=== PATIENT | female | born 1950 | race Caucasian/White ===

== ENCOUNTER 2020-10-28 19:19 | Inpatient (IN) ==
[2020-10-28] MEDS ORDERED: KETOROLAC 15 MG/ML VIAL IV ONE (19:54)
[2020-10-28] MEDS ORDERED: LACTATED RINGERS 1,000 ML IV ONE (19:54)
[2020-10-28] MEDS ORDERED: morphine 4 MG/ML VIAL IV ONE ×2 (19:54→21:43)
[2020-10-28] MEDS ORDERED: ONDANSETRON 4 MG/2 ML VIAL IV ONE ×2 (19:54→23:59)
[2020-10-28 20:38] LABS: Basophils # (Auto) 0.06 K/mcL (0.00-0.20); Basophils % (Auto) 0.6 % (0.0-2.0); Eosinophils # (Auto) 0.12 K/mcL (0.00-0.70); Eosinophils % (Auto) 1.2 % (0.0-7.0); Hematocrit 45.3 % (36.0-48.0); Hemoglobin 14.7 g/dL (12.0-15.0); Lymphocytes % (Auto) 24.2 % (15.0-49.0); Mean Cell Volume 96.6 fL (80.0-100.0); Mean Corpuscular HGB Conc 32.5 g/dL (31.0-36.0); Mean Platelet Volume 9.1 fL (7.4-10.4); Monocytes # (Auto) 0.72 K/mcL (0.10-0.90); Monocytes % (Auto) 7.3 % (1.0-12.0); Neutrophils % (Auto) 66.7 % (38.0-78.0); Platelet Count 370 K/mcL (140-440); RBC 4.69 M/mcL (4.00-5.20); Red Cell Distribution Width 15.5 % (11.5-14.5); WBC 9.9 K/mcL (4.5-11.0)
--- NOTE | 2020-10-28 20:49 | Emergency Department Note ---
Abdominal Pain HPI General Chief Complaint: Abdominal Pain Stated Complaint: left sided abdominal pain Time Seen by Provider: 10/28/20 19:33 Source: patient Mode of arrival: ambulatory Limitations: no limitations History of Present Illness HPI Narrative: Narrative: 70-year-old female history hypertension, GERD, distant kidney stone presented to the ED with acute left flank pain that started this evening. Left flank pain radiating around to her left groin region. Associated with nausea and the feeling of urinary hesitancy, no dysuria or hematuria. No fever no chills, no vomiting, no stool changes. No cardiorespiratory complaints or other symptoms. She does not remember if this feels like her previous kidney stone because it was a very long time ago. No other complaints Related Data Home Medications Medication Instructions Recorded Confirmed budesonide 3 mg 3 mg PO QDAY each 11/21/14 05/23/15 capsule,delayed,extended release Previous Rx's Medication Instructions Recorded albuterol sulfate 2 puff IH Q4-6HP PRN #1 hfa.aer.ad 03/12/15 clindamycin HCl 450 mg PO TID #126 cap 03/12/15 oxycodone 20 mg tablet 20 mg PO Q4H PRN #120 tab 04/18/15 oxycodone 10 mg tablet,crush 10 mg PO BID #60 tab 04/25/15 resistant,extended release 12 hr methocarbamol 750 mg tablet 750 mg PO Q6H 30 Days #120 tab 05/23/15 spironolactone 25 mg tablet 25 mg PO BID #60 tab 05/23/15 Allergies Allergy/AdvReac Type Severity Reaction Status Date / Time alprazolam [From Xanax] Allergy Unknown Unknown Verified 05/23/15 09:07 codeine Allergy Unknown Vomiting Verified 10/29/20 02:30 Doxepin Allergy Unknown Unknown Verified 05/23/15 09:07 Penicillins Allergy Unknown Agitated Verified 10/29/20 02:32 prednisone Allergy Unknown Shakiness Verified 10/29/20 02:30 Dougpgx-Zhk-Own Reductase Allergy Unknown Unknown Verified 05/23/15 09:07 Inhibitor Sulfa (Sulfonamide Allergy Unknown Hives Verified 10/29/20 02:32 Antibiotics) sumatriptan [From Imitrex] Allergy Unknown Unconscious Verified 10/29/20 02:34 tramadol Allergy Unknown Vomiting Uncoded 10/29/20 02:33 vicodin Allergy Unknown Vomiting Uncoded 10/29/20 02:33 Review of Systems ROS ROS Narrative: Narrative: At least 10 systems reviewed and otherwise acutely negative except as in the HPI PFSH Narrative Patient History Narrative: Narrative: Medical/Surgical/Family History All Active Problems (Updated 10/29/20 @ 04:44 by Afshin Cote DO) Trigger point with back pain (Acute) Maxillary sinusitis (Acute) Bronchitis (Acute) Calculus of left ureter (Acute) Intractable abdominal pain (Acute) Adrenal nodule (Acute) Swelling of lower extremity (Chronic) Abdominal bloating (Acute) Lymphocytic-plasmacytic colitis (Acute) Chest swelling (Chronic) Spasm of muscle (Chronic) Rhinorrhea (Chronic) Personal history of allergy to other specified medicinal agents (Chronic) Obesity (Chronic) Disease of nasal cavity and sinuses (Chronic) Melanoma of skin (Chronic) Hypertension, essential, benign (Chronic) Gastroesophageal reflux (Chronic) Empty sella syndrome (Chronic) Chest pressure (Chronic) Tobacco abuse (Chronic) Diarrhea (Acute) Chronic pain (Chronic) Chest pain (Chronic) Anxiety disorder (Chronic) Tubular adenoma (Chronic 07/04/12) Medical History Abdominal bloating Try Gas-Ex Adrenal nodule in 2013, it had been stable 1.5 yrs, so very likely a benign adrenal adenoma. CT will help define. Can check for pancreatic atrophy also. Anxiety disorder Bronchitis Chest pain Chest pressure Chest swelling Chronic pain Diarrhea Try Imodium. Try Budesonide Disease of nasal cavity and sinuses Sphenoid CSF leak Empty sella syndrome Gastroesophageal reflux Hypertension, essential, benign Lymphocytic-plasmacytic colitis Discussed that typically this is self-limited, though can take years to resolve. It is not dangerous in and of itself, and if all the treatments are making her ill, we can certainly focus just on symptom control, with Imodium or Lomotil, and with Gas-Ex, etc. Maxillary sinusitis Melanoma of skin Obesity Personal history of allergy to other specified medicinal agents Rhinorrhea Spasm of muscle movemenet disorder with instability on neck,spasm in right neck and trapezius,and shaking tremor and pain in right arm Swelling of lower extremity Tobacco abuse Trigger point with back pain Tubular adenoma (07/04/12) 09/25/2014 - Dr. Rahman Surgical History History of abdominal surgery abdominoplasty/tummy florick 1987 History of appendectomy 1986 History of biopsy (05/25/12) SMALL BOWEL-DUODENAL BULB BIOPSY History of cervical biopsy (11/16/12) Cuff Biopsy (A) /Tissue (B): (A) Focal Koilocytosis, (B) Squamous mucosa with patchy keratosis and mild hyperplasia, no dysplasia or malignancy identified History of colonoscopy 09/25/2014 - Dr. Rahman - Tubular Adenoma History of cystoscopy History of dilation and curettage X'S 2 History of esophagogastroduodenoscopy 09/25/2014 - Dr. Rahman History of hysterectomy 1983 with bladder suspension History of laparoscopy 1983 for endometriosis History of mandibular surgery 1990 mandibular History of oophorectomy 1986 right History of rhinoplasty sphenoid leak repair x 6,right sphenoid polyp removal 2004 sinus surgery to repair csf leak in 2004 with 5 more subsequent repairs last one in 2007 History of salpingoophorectomy History of TMJ disorder 1984,1987 History of tubal ligation 1977 Family History Unknown Alcohol abuse Diabetes mellitus Osteoarthritis Cardiac disease Family history of malignant neoplasm unspecified Social History Smoking Status: Current every day smoker Alcohol Intake Frequency: former alcohol drinker Exam Narrative Narrative: Narrative: Constitutional: normally developed, appears uncomfortable, cannot sit still. Head: Normocephalic, atraumatic, Eyes: No Icterus, ENT: Moist mucus membranes, Neck: Supple, Cardiac: Normal heart sounds, palpable radial and dorsalis pedis pulses, trace symmetric peripheral edema Pulmonary: Normal respiratory effort. Breath sounds clear, no wheeze, rhonchi, rales, Gastrointestinal: Abdomen soft, non-distended, somewhat tender in her left lower quadrant, quite tender with left CVA palpation Musculoskeletal: No gross deformities, well perfused Skin: warm, dry Neuro: Alert and oriented. General Limitations: no limitations Course Vital Signs Vital signs: Vital Signs Temperature 36.9 C 10/28/20 19:19 Pulse Rate 118 H 10/28/20 19:19 Respiratory Rate 20 10/28/20 19:19 Blood Pressure 178/150 10/28/20 19:19 Pulse Oximetry (%) 95 10/28/20 19:19 Temperature 36.7 C 10/29/20 02:27 Pulse Rate 91 H 10/29/20 02:27 Respiratory Rate 20 10/29/20 02:27 Blood Pressure 148/84 10/29/20 02:27 Pulse Oximetry (%) 91 10/29/20 02:27 MDM MDM Narrative Medical decision making narrative: Narrative: Patient with left flank pain, vital stable appears uncomfortable does have CVA tenderness. Work-up was initiated as treated symptomatically, will obtain labs urine and CT CBC unremarkable no leukocytosis Electrolytes unremarkable normal renal function Urine dip negative for infection, negative for glucose, negative for ketones, large blood positive CT shows moderate left hydronephrosis and hydroureter with a 4 mm stone in the proximal left ureter Reevaluation presentation consistent with a ureteral stone with no evidence of acute kidney injury nor infection, However patient has required multiple rounds of analgesia including Toradol and morphine and Dilaudid, multiple antiemetics, is given Flomax however she is still having recurrent flank pain worsens when she attempts any sort of movement or ambulation and nausea. Will require admission for symptom control. I did discuss with our hospitalist here, considering there is no indication for emergent urological intervention, and stone is of appropriate size to suggest passing with conservative management he is agreeable and comfortable admitting her here for symptom control, despite not have urology on-call at this time. and if at any point she requires further urologic care she can be transferred at that time. Patient and family are very agreeable to this plan. Admitted to observation with stable vitals Lab Data Result diagrams: 10/28/20 20:12 10/28/20 20:12 Labs: Lab Results 10/28/20 10/28/20 Range/Units 20:12 20:12 WBC 9.9 (4.5-11.0) K/mcL RBC 4.69 (4.00-5.20) M/mcL Hgb 14.7 (12.0-15.0) g/dL Hct 45.3 (36.0-48.0) % MCV 96.6 (80.0-100.0) fL MCH 31.3 (26.0-34.0) pg MCHC 32.5 (31.0-36.0) g/dL RDW 15.5 H (11.5-14.5) % Plt Count 370 (140-440) K/mcL MPV 9.1 (7.4-10.4) fL Neut % (Auto) 66.7 (38.0-78.0) % Lymph % (Auto) 24.2 (15.0-49.0) % [place] % (Auto) 7.3 (1.0-12.0) % Eos % (Auto) 1.2 (0.0-7.0) % Baso % (Auto) 0.6 (0.0-2.0) % Lymph # (Auto) 2.40 (1.50-4.80) K/mcL [place] # (Auto) 0.72 (0.10-0.90) K/mcL Eos # (Auto) 0.12 (0.00-0.70) K/mcL Baso # (Auto) 0.06 (0.00-0.20) K/mcL Absolute Neutrophils 6.62 (1.80-8.00) K/mcL Sodium 137 (133-145) mmol/L Potassium 4.1 (3.3-5.1) mmol/L Chloride 101 (96-108) mmol/L Carbon Dioxide 23 (22-30) mmol/L Anion Gap 13.0 (8.0-16.0) BUN 9 (8-23) mg/dL Creatinine 0.8 (0.6-1.1) mg/dL GFR Calculation 75 Glucose 152 H (70-105) mg/dL Calcium 9.1 (8.6-10.4) mg/dL Total Bilirubin 0.2 (0.1-1.0) mg/dL AST 36 H (<32) U/L ALT 38 (<40) U/L Alkaline Phosphatase 91 (39-117) U/L Total Protein 7.6 (5.9-8.4) gm/dL Albumin 3.9 (3.2-5.2) gm/dL Globulin 3.7 (2.2-3.7) gm/dL Albumin/Globulin Ratio 1.1 (1.0-2.3) Lipase 23 (7-60) U/L ED POC Tests ED POC Tests: MADAN - SARS Antigen Negative Discharge Plan Patient/Caregiver Discharge Instructions Pt seen by ASSEMBLYMAN OR WOMAN/PA only: No Clinical Impression: Calculus of left ureter, Intractable abdominal pain Patient Disposition: Xfer As Inpt ([facility]) Discharge Date/Time: 10/29/20 02:19
[2020-10-28 20:55] LABS: ALT/SGPT 38 U/L (<40); AST/SGOT 36 U/L (<32); Albumin 3.9 gm/dL (3.2-5.2); Albumin/Globulin Ratio 1.1 (1.0-2.3); Alkaline Phosphatase 91 U/L (39-117); Bilirubin,Total 0.2 mg/dL (0.1-1.0); Blood Urea Nitrogen 9 mg/dL (8-23); Calcium 9.1 mg/dL (8.6-10.4); Carbon Dioxide 23 mmol/L (22-30); Chloride 101 mmol/L (96-108); Globulin 3.7 gm/dL (2.2-3.7); Glomerular Filtration Rate 75; Glucose 152 mg/dL (70-105)
[2020-10-28] MEDS ORDERED: HYDROmorphone 0.5 MG/0.5 ML SYRINGE IV ONE (22:07)
[2020-10-28] MEDS ORDERED: TAMSULOSIN 0.4 MG CAPSULE PO ONE (23:56)
[2020-10-28] MEDS ORDERED: HYDROmorphone 1 MG/ML SYRINGE IV ONE (23:56)
[2020-10-29] MEDS ORDERED: ONDANSETRON 4 MG/2 ML VIAL IV PRN ×2 (01:36→09:29)
[2020-10-29] MEDS: HYDROmorphone 0.5 MG/0.5 ML SYRINGE IV PRN ×7 (02:12→22:10)
--- NOTE | 2020-10-29 06:12 | Cat Scan Report ---
INDICATION: L flank pain COMPARISON: None. TECHNIQUE: Axial images were obtained through the abdomen and pelvis. Sagittally and coronally reformatted images. FINDINGS: Examination was initially interpreted by [facility] Lung bases:There is reticular abnormality at both lung bases. There is mild tree-in-bud abnormality. No parenchymal consolidation or definite groundglass infiltrate. Findings are nonspecific. Is not typical for covid pneumonia but clinical correlation is necessary. There is no pleural fluid. Liver:Liver is heterogeneous and low density consistent with hepatic steatosis. Liver contour is smooth. There is no discrete mass identified on this noncontrast enhanced examination. Gallbladder, bilary:No calcified gallstones. No gallbladder wall thickening. No pericholecystic fluid. No dilated bile ducts Spleen:No splenomegaly Pancreas:No pancreatic mass. No peripancreatic abnormality Adrenal glands:Bilateral benign adrenal nodules. Right adrenal nodule measures 3.0 x 2.4 cm. Left adrenal nodule measures 16.6 x 17.1 cm. Both adrenal nodules contain fat Kidneys, ureters, bladder: Negative right kidney. No hydronephrosis. No detectable mass. There is a 2 mm nonobstructing left lower pole calculus. There is an obstructing 6 mm stone in the proximal left ureter at the L3-4 level. Is moderate hydronephrosis. No bladder calculi. Gastrointestinal:No significant diverticulosis or evidence for diverticulitis. No detectable colonic mass No mechanical small bowel obstruction. No small bowel dilatation. Appendix: The appendix is not visualized. No secondary findings of appendicitis Vascular:There is calcification of the abdominal aorta and common iliac arteries. No abdominal aortic aneurysm. There is mild calcification at the origin of the superior mesenteric artery. Lymphatic:No retroperitoneal adenopathy. No significant mesenteric adenopathy. Mesentery, peritoneum:No free intraperitoneal fluid. No intra-abdominal abscess. No pneumoperitoneum Reproductive:Uterus is not identified. No adnexal mass Musculoskeletal:No lumbar compression fractures. No lytic lesions. Negative sacrum. No insufficiency fracture. Pelvis is negative. No fracture. No lytic lesion. Patient has undergone previous right total hip arthroplasty No anterior abdominal wall or inguinal hernia. IMPRESSION: 1. Moderate left hydronephrosis. Obstructing 6 mm calculus in the proximal left ureter 2. 2 mm nonobstructing left lower pole renal stone 3. Bilateral fat-containing adrenal nodules 4. Reticular abnormality of both lung bases. No definite groundglass infiltrates. Correlation for symptoms of pneumonia recommended The exam was performed using radiation dose optimization techniques including, but not limited to, automated exposure control, adjustment of the mA and/or kV according to patient size and use of iterative reconstruction technique. Interpreted and Authenticated by: rGiffin Harman 10/29/20
[2020-10-29] MEDS ORDERED: PROMETHAZINE 25 MG/ML VIAL IV PRN (09:29)
[2020-10-29] MEDS ORDERED: ACETAMINOPHEN 325 MG TABLET PO PRN (09:29)
--- NOTE | 2020-10-29 09:33 | Internal Med History&Physical ---
HPI History of Present Illness Patient information: Note initiated : 10/29/20 at 9:33 am Service Date, if different from initiated Date: [] Patient: Chidi Muniz a 70 y/o F admitted on 10/29/20 for left sided abdominal pain. Chief Complaint: [left renal and ureteral stone] History of present illness: Ms. Muniz is a 70 year old F history of cervical dystonia, cancer of the sinuses, essential HTN, presenting with acute onset left lower quadrant abdominal pain as well as left middle to lower back pain for 2 days. She had similar symptoms associated with kidney stone about 3 years ago. She was in her usual state of health until yesterday when she had acute onset pain as described before. The pain was described as severe in severity, discomfort in nature, constant, and covering the region described before. She also have associated nausea and vomiting. There is no alleviating or exacerbating factors. Due to her symptoms, she presented to our ED for further evaluation and treatments. CT imaging shows the presence of 2 mm nonobstructing stone in the lower pole of the left kidney as well as a 6 mm stone in the left proximal ureter. There is also hydronephrosis of the left kidney noted. Constitutional Constitutional: Absent chills, excessive sweating, fatigue, fever(s) and weakness EENT Eyes: Absent blurry vision, change in vision, loss of vision and other visual disturbances Ears: Absent decreased hearing and tinnitus Nose, mouth and throat: Absent abnormal hearing, dry mouth, headache(s), nasal congestion and sore throat Cardiovascular Cardiovascular: Absent chest pain, chest pain at rest, edema, irregular heart rhythm and palpatations Respiratory Respiratory: Absent cough, dyspnea and wheezing Gastrointestinal Gastrointestinal: Present abdominal pain, nausea and vomiting; Absent constipation and diarrhea Musculoskeletal Musculoskeletal: Present back pain; Absent deformity, limited range of motion, muscle cramps, muscle weakness and numbness Integumentary Integumentary: Absent lesions, rash and wounds Neurological Neurological: Absent focal weakness, headache(s) and numbness Psychiatric Psychiatric: Absent anxiety, depression and hallucinations PFSH PFSH All Active Problems (Updated 10/29/20 @ 09:38 by Janes Suero MD) Left renal stone (Acute) Ureteral stone with hydronephrosis (Acute) Trigger point with back pain (Acute) Maxillary sinusitis (Acute) Bronchitis (Acute) Calculus of left ureter (Acute) Intractable abdominal pain (Acute) Adrenal nodule (Acute) Swelling of lower extremity (Chronic) Abdominal bloating (Acute) Lymphocytic-plasmacytic colitis (Acute) Chest swelling (Chronic) Spasm of muscle (Chronic) Rhinorrhea (Chronic) Personal history of allergy to other specified medicinal agents (Chronic) Obesity (Chronic) Disease of nasal cavity and sinuses (Chronic) Melanoma of skin (Chronic) Hypertension, essential, benign (Chronic) Gastroesophageal reflux (Chronic) Empty sella syndrome (Chronic) Chest pressure (Chronic) Tobacco abuse (Chronic) Diarrhea (Acute) Chronic pain (Chronic) Chest pain (Chronic) Anxiety disorder (Chronic) Tubular adenoma (Chronic 07/04/12) Medical History Abdominal bloating Try Gas-Ex Adrenal nodule in 2013, it had been stable 1.5 yrs, so very likely a benign adrenal adenoma. CT will help define. Can check for pancreatic atrophy also. Anxiety disorder Bronchitis Chest pain Chest pressure Chest swelling Chronic pain Diarrhea Try Imodium. Try Budesonide Disease of nasal cavity and sinuses Sphenoid CSF leak Empty sella syndrome Gastroesophageal reflux Hypertension, essential, benign Lymphocytic-plasmacytic colitis Discussed that typically this is self-limited, though can take years to resolve. It is not dangerous in and of itself, and if all the treatments are making her ill, we can certainly focus just on symptom control, with Imodium or Lomotil, and with Gas-Ex, etc. Maxillary sinusitis Melanoma of skin Obesity Personal history of allergy to other specified medicinal agents Rhinorrhea Spasm of muscle movemenet disorder with instability on neck,spasm in right neck and trapezius,and shaking tremor and pain in right arm Swelling of lower extremity Tobacco abuse Trigger point with back pain Tubular adenoma (07/04/12) 09/25/2014 - Dr. Rahman Surgical History History of abdominal surgery abdominoplasty/tummy erin 1987 History of appendectomy 1986 History of biopsy (05/25/12) SMALL BOWEL-DUODENAL BULB BIOPSY History of cervical biopsy (11/16/12) Cuff Biopsy (A) /Tissue (B): (A) Focal Koilocytosis, (B) Squamous mucosa with patchy keratosis and mild hyperplasia, no dysplasia or malignancy identified History of colonoscopy 09/25/2014 - Dr. Rahman - Tubular Adenoma History of cystoscopy History of dilation and curettage X'S 2 History of esophagogastroduodenoscopy 09/25/2014 - Dr. Rahman History of hysterectomy 1983 with bladder suspension History of laparoscopy 1983 for endometriosis History of mandibular surgery 1990 mandibular History of oophorectomy 1986 right History of rhinoplasty sphenoid leak repair x 6,right sphenoid polyp removal 2004 sinus surgery to repair csf leak in 2004 with 5 more subsequent repairs last one in 2007 History of salpingoophorectomy History of TMJ disorder 1984,1988 History of tubal ligation 1978 Family History Unknown Alcohol abuse Diabetes mellitus Osteoarthritis Cardiac disease Family history of malignant neoplasm unspecified Social History marital status: alcohol intake frequency: former alcohol drinker MEDS/ALLERGIES Home Medications and Allergies Home Medications Medication Instructions Recorded Confirmed Type budesonide 3 mg 3 mg PO QDAY each 11/21/14 05/23/15 History capsule,delayed,extended release albuterol sulfate 2 puff IH Q4-6HP PRN #1 hfa.aer.ad 03/12/15 05/23/15 Rx clindamycin HCl 450 mg PO TID #126 cap 03/12/15 05/23/15 Rx oxycodone 20 mg tablet 20 mg PO Q4H PRN #120 tab 04/18/15 05/23/15 Rx oxycodone 10 mg tablet,crush 10 mg PO BID #60 tab 04/25/15 05/23/15 Rx resistant,extended release 12 hr methocarbamol 750 mg tablet 750 mg PO Q6H 30 Days #120 tab 05/23/15 05/23/15 Rx spironolactone 25 mg tablet 25 mg PO BID #60 tab 05/23/15 05/23/15 Rx Allergies Allergy/AdvReac Type Severity Reaction Status Date / Time alprazolam [From Xanax] Allergy Unknown Unknown Verified 05/23/15 09:07 codeine Allergy Unknown Vomiting Verified 10/29/20 02:30 Doxepin Allergy Unknown Unknown Verified 05/23/15 09:07 Penicillins Allergy Unknown Agitated Verified 10/29/20 02:32 prednisone Allergy Unknown Shakiness Verified 10/29/20 02:30 Opyzbqe-Zyb-Lnl Reductase Allergy Unknown Unknown Verified 05/23/15 09:07 Inhibitor Sulfa (Sulfonamide Allergy Unknown Hives Verified 10/29/20 02:32 Antibiotics) sumatriptan [From Imitrex] Allergy Unknown Unconscious Verified 10/29/20 02:34 tramadol Allergy Unknown Vomiting Uncoded 10/29/20 02:33 vicodin Allergy Unknown Vomiting Uncoded 10/29/20 02:33 EXAM Constitutional Vitals: Temp Pulse Resp BP Pulse Ox 36.6 C 116 H 22 163/92 95 10/29/20 08:00 10/29/20 08:00 10/29/20 08:00 10/29/20 08:00 10/29/20 08:00 General appearance: cooperative and mild distress Head Head exam: Present atraumatic and normocephalic Eye Eye exam: Present EOMI and PERRL ENT ENT exam: Present mucous membranes moist, normal exam and normal external ear exam Neck Neck exam: Present normal inspection; Absent lymphadenopathy, tenderness and thyromegaly Respiratory Respiratory exam: Absent accessory muscle use, respiratory distress and wheezes Cardiovascular Cardiovascular exam: Present normal rate and rhythm; Absent JVD GI/Abdominal GI/Abdominal exam: Present normal bowel sounds and soft; Absent organomegaly and tenderness Additional comments: obese abdomen Extremities Exam Extremities exam: Present full ROM, normal capillary refill and normal inspection; Absent tenderness Back Exam Back exam: Absent CVA tenderness (L) Neurological Exam Neurological exam: Present alert, CN II-XII intact and oriented X3; Absent motor sensory deficit Psychiatric Psychiatric exam: Present normal affect and normal mood; Absent anxious and depressed Skin Skin exam: Present dry and intact DATA Data Completed and Pending Labs: Labs from last 24 hours 10/28/20 10/28/20 20:12 20:12 WBC 9.9 RBC 4.69 Hgb 14.7 Hct 45.3 MCV 96.6 MCH 31.3 MCHC 32.5 RDW 15.5 H Plt Count 370 MPV 9.1 Neut % (Auto) 66.7 Lymph % (Auto) 24.2 [place] % (Auto) 7.3 Eos % (Auto) 1.2 Baso % (Auto) 0.6 Lymph # (Auto) 2.40 [place] # (Auto) 0.72 Eos # (Auto) 0.12 Baso # (Auto) 0.06 Absolute Neutrophils 6.62 Sodium 137 Potassium 4.1 Chloride 101 Carbon Dioxide 23 Anion Gap 13.0 BUN 9 Creatinine 0.8 GFR Calculation 75 Glucose 152 H Calcium 9.1 Total Bilirubin 0.2 AST 36 H ALT 38 Alkaline Phosphatase 91 Total Protein 7.6 Albumin 3.9 Globulin 3.7 Albumin/Globulin Ratio 1.1 Lipase 23 A/P Assessment and plan (1) Obesity: Status: Chronic (2) Ureteral stone with hydronephrosis: Status: Acute (3) Left renal stone: Status: Acute (4) Hypertension, essential, benign: Status: Chronic Narrative A/P Narrative: Assessment and Plans: 1. Left kidney stone and left proximal ureteral stone with associated hydronephrosis: Observation med surg IV fluid: NS@100cc/hr Flomax Symptoms control as following: Dilaudid IV PRN severe pain Percocet PO PRN moderate pain Toradol IV PRN mild pain Zofran IV PRN nausea vomiting Phenergan IV PRN nausea vomiting Compazine IV PRN nausea vomiting Consider consulting urology if no symptoms improvement for potential lithotripsy 2. Essential HTN: Currently normotensive Continue home dose of oral antihypertensives 3. Morbid obesity: [employer] patient on life style modifications including healthy diet and regular exercise in order to lose weight GI ppx: not currently indicated DVT ppx: SCDs Code status: Full Prognosis: Stable Disposition: Observation med surg Time Spent With Patient Time: Total time spent is greater than 50% in coordination of care (as documented) at patient's floor/unit and/or counseling patient: QUALITY Stroke Symptom Onset Unknown: No VTE Deep Vein Thrombosis/Pulmonary Embolism Present on Admission: No
[2020-10-29] MEDS: 0.9 % SODIUM CHLORIDE 1,000 ML IV SCH ×2 (10:26→20:47)
[2020-10-29] MEDS: KETOROLAC 15 MG/ML VIAL IV PRN ×2 (10:45→17:31)
[2020-10-29] MEDS: 0.9 % SODIUM CHLORIDE 10 ML SYRINGE IV SCH ×2 (14:30→22:13)
[2020-10-29] MEDS: PROCHLORPERAZINE 10 MG/2 ML VIAL IV PRN (15:35)
[2020-10-29] MEDS: oxyCODONE/APAP 5/325MG TABLET PO PRN (18:52)
[2020-10-29] MEDS: TAMSULOSIN 0.4 MG CAPSULE PO SCH (20:47)
[2020-10-29] MEDS ORDERED: traZODone HCL 50 MG TABLET PO PRN (21:00)
[2020-10-29] MEDS: DOCUSATE SODIUM 100 MG CAPSULE PO SCH (22:17)
[2020-10-29] MEDS: SENNOSIDES 1 TABLET PO SCH (22:17)
[2020-10-30] MEDS: oxyCODONE/APAP 5/325MG TABLET PO PRN ×5 (00:54→22:10)
[2020-10-30] MEDS: 0.9 % SODIUM CHLORIDE 10 ML SYRINGE IV SCH ×3 (05:54→20:12)
[2020-10-30] MEDS: 0.9 % SODIUM CHLORIDE 1,000 ML IV SCH ×3 (07:16→17:24)
[2020-10-30] MEDS: DOCUSATE SODIUM 100 MG CAPSULE PO SCH ×2 (08:57→20:11)
[2020-10-30] MEDS: PROCHLORPERAZINE 10 MG/2 ML VIAL IV PRN (09:28)
[2020-10-30] MEDS: HYDROmorphone 0.5 MG/0.5 ML SYRINGE IV PRN ×2 (09:29→20:09)
[2020-10-30] MEDS ORDERED: OXYCODONE 20 MG PO PRN (12:07)
[2020-10-30] MEDS ORDERED: ALBUTEROL SULFATE 200 PUFF INHALER IH PRN (12:07)
--- NOTE | 2020-10-30 12:14 | Internal Med Progress Note ---
SUBJECTIVE Subjective Patient information: Note initiated : 10/30/20 at 12:10 pm Service Date, if different from initiated Date: [] Patient: Chidi Muniz a 70 y/o F admitted on 10/30/20 for left sided abdominal pain. Chief Complaint: [Left kidney and ureteral stones] History of present illness: Ms. Muniz is a 70 year old F history of cervical dystonia, cancer of the sinuses, essential HTN, presenting with acute onset left lower quadrant abdominal pain as well as left middle to lower back pain for 2 days. She had similar symptoms associated with kidney stone about 3 years ago. She was in her usual state of health until yesterday when she had acute onset pain as described before. The pain was described as severe in severity, discomfort in nature, constant, and covering the region described before. She also have associated nausea and vomiting. There is no alleviating or exacerbat ing factors. Due to her symptoms, she presented to our ED for further evaluation and treatments. CT imaging shows the presence of 2 mm nonobstructing stone in the lower pole of the left kidney as well as a 6 mm stone in the left proximal ureter. There is also hydronephrosis of the left kidney noted. 10/30: Passes some debridement of stones in her urine as per nurse. c/o moderate intermittent sharp pain of her LLQ abdomen and left back. Denies nausea or vomiting. Good appetite. Denies dysuria. Denies fever or chills. Constitutional Vitals: Vital Signs Temp Pulse Resp BP Pulse Ox 36.1 C L 107 H 18 131/63 93 10/30/20 08:00 10/30/20 08:00 10/30/20 08:00 10/30/20 08:00 10/30/20 08:00 Period Temp Pulse Resp BP Sys/Gaona Pulse Ox Last 24 Hr 36.1 C-37.2 C 79-107 12-20 112-131/63-80 91-96 Intake and Output 10/29/20 10/30/20 10/30/20 21:59 05:59 13:59 Intake Total 8529 020 5590 Output Total 525 1025 150 Balance 475 -145 850 Weight 103.374 kg Intake & Output: Intake & Output 10/29/20 10/30/20 10/30/20 21:59 05:59 13:59 Intake Total 7414 059 3531 Output Total 525 1025 150 Balance 475 -145 850 Weight 103.374 kg Intake: IV 1000 1000 Sodium Chloride 0.9% 1,000 ml @ 1000 1000 100 mls/hr IV .Q10H [facility] Rx#: [id number] Oral 880 Output: Void Amount 525 1025 150 Other: Urine Appearance Clear Clear Urine Color Bright Yellow Bright Yellow Urine Odor Normal # Voids 1 General appearance: cooperative and no acute distress Head Head exam: Present atraumatic and normocephalic Eye Eye exam: Present EOMI and PERRL ENT ENT exam: Present mucous membranes moist, normal exam and normal external ear exam Neck Neck exam: Present normal inspection; Absent lymphadenopathy, tenderness and thyromegaly Respiratory Respiratory exam: Absent accessory muscle use, respiratory distress and wheezes Cardiovascular Cardiovascular exam: Present normal rate and rhythm; Absent JVD GI/Abdominal GI/Abdominal exam: Present normal bowel sounds and soft; Absent organomegaly and tenderness Extremities Exam Extremities exam: Present full ROM, normal capillary refill and normal inspection; Absent tenderness Neurological Exam Neurological exam: Present alert, CN II-XII intact and oriented X3; Absent motor sensory deficit Psychiatric Psychiatric exam: Present normal affect and normal mood; Absent anxious and depressed Skin Skin exam: Present dry and intact OBJ DATA Labs CBC & Chem 7: 10/28/20 20:12 10/28/20 20:12 Labs: Abnormal Lab Results 10/28/20 10/28/20 20:12 20:12 RDW 15.5 H Glucose 152 H AST 36 H Meds: Medications Acetaminophen (Acetaminophen 325 Mg Tablet) 650 mg PO Q6HP PRN; Protocol PRN Reason: Per Pain Protocol/Fever > 101 Docusate Sodium (Docusate Sodium 100 Mg Capsule) 100 mg PO BID [facility] Last Admin: 10/30/20 08:57 Dose: Not Given Documented by: Hydromorphone HCl (Hydromorphone 0.5 Mg/0.5 Ml Syringe) 0.5 mg IV Q2HP PRN; Protocol PRN Reason: Per Pain Protocol Last Admin: 10/30/20 09:29 Dose: 0.5 mg Documented by: Sodium Chloride (Sodium Chloride 0.9%) 1,000 mls @ 100 mls/hr IV .Q10H [facility] Last Admin: 10/30/20 07:16 Dose: 100 mls/hr Documented by: Ketorolac Tromethamine (Ketorolac 15 Mg/Ml Vial) 15 mg IV Q6HP PRN; Protocol PRN Reason: Per Pain Protocol Last Admin: 10/29/20 17:31 Dose: 15 mg Documented by: Ondansetron HCl (Ondansetron 4 Mg/2 Ml Vial) 4 mg IV Q4HP PRN; Protocol PRN Reason: Nausea And Vomiting Last Admin: 10/29/20 02:12 Dose: 4 mg Documented by: Ondansetron HCl (Ondansetron 4 Mg/2 Ml Vial) 4 mg IV Q6HP PRN PRN Reason: Nausea And Vomiting Oxycodone/Acetaminophen (Oxycodone/Apap 5/325mg Tablet) 1 tab PO Q4HP PRN; Protocol PRN Reason: Per Pain Protocol Last Admin: 10/30/20 05:50 Dose: 1 tab Documented by: Prochlorperazine (Prochlorperazine 10 Mg/2 Ml Vial) 5 mg IV Q4HP PRN PRN Reason: Nausea And Vomiting Last Admin: 10/30/20 09:28 Dose: 5 mg Documented by: Promethazine HCl (Promethazine 25 Mg/Ml Vial) 12.5 mg IV Q6HP PRN PRN Reason: Nausea And Vomiting Last Admin: 10/29/20 10:46 Dose: 12.5 mg Documented by: Senna (Sennosides 1 Tablet) 2 tab PO [facility] Last Admin: 10/29/20 22:17 Dose: Not Given Documented by: Sodium Chloride (0.9 % Sodium Chloride 10 Ml Syringe) 10 ml IV Q8 [facility] Last Admin: 10/30/20 05:54 Dose: Not Given Documented by: Tamsulosin HCl (Tamsulosin 0.4 Mg Capsule) 0.4 mg PO [facility] Last Admin: 10/29/20 20:47 Dose: 0.4 mg Documented by: Trazodone HCl (Trazodone Hcl 50 Mg Tablet) 25 mg PO [facility] PRN PRN Reason: Insomnia A/P Assessment and plan (1) Obesity: Status: Chronic (2) Ureteral stone with hydronephrosis: Status: Acute (3) Left renal stone: Status: Acute (4) Hypertension, essential, benign: Status: Chronic Narrative A/P Narrative: Assessment and Plans: 1. Left kidney stone and left proximal ureteral stone with associated hydro nephrosis: Observation med surg IV fluid: NS@100cc/hr Flomax Symptoms control as following: Dilaudid IV PRN severe pain Percocet PO PRN moderate pain Toradol IV PRN mild pain Zofran IV PRN nausea vomiting Phenergan IV PRN nausea vomiting Compazine IV PRN nausea vomiting Consider consulting urology if no symptoms improvement for potential lithotripsy 2. Essential HTN: Currently normotensive Continue home dose of oral antihypertensives 3. Morbid obesity: [employer] patient on life style modifications including healthy diet and regular exercise in order to lose weight GI ppx: not currently indicated DVT ppx: SCDs Code status: Full Prognosis: Stable Disposition: Observation med surg Time Spent With Patient Time: Total time spent is greater than 50% in coordination of care (as documented) at patient's floor/unit and/or counseling patient: Total time spent with greater than 50% in coordination of care (as documented) at patient's floor/unit and/or counseling patient:: 15 - 24 minutes QUALITY Stroke Symptom Onset Unknown: No VTE Deep Vein Thrombosis/Pulmonary Embolism Present on Admission: No
[2020-10-30] MEDS: METHOCARBAMOL 750 MG TABLET PO SCH ×3 (12:19→23:57)
[2020-10-30] MEDS: KETOROLAC 15 MG/ML VIAL IV PRN (16:13)
[2020-10-30] MEDS: SPIRONOLACTONE 25 MG TABLET PO SCH (20:11)
[2020-10-30] MEDS: TAMSULOSIN 0.4 MG CAPSULE PO SCH (20:11)
[2020-10-30] MEDS: SENNOSIDES 1 TABLET PO SCH (20:11)
[2020-10-31] MEDS: 0.9 % SODIUM CHLORIDE 1,000 ML IV SCH ×2 (03:25→14:01)
[2020-10-31] MEDS: oxyCODONE/APAP 5/325MG TABLET PO PRN ×3 (03:33→12:28)
[2020-10-31] MEDS: 0.9 % SODIUM CHLORIDE 10 ML SYRINGE IV SCH (04:36)
[2020-10-31] MEDS: METHOCARBAMOL 750 MG TABLET PO SCH ×2 (05:35→12:28)
[2020-10-31] MEDS: HYDROmorphone 0.5 MG/0.5 ML SYRINGE IV PRN (06:48)
[2020-10-31] MEDS: DOCUSATE SODIUM 100 MG CAPSULE PO SCH (08:28)
[2020-10-31] MEDS: SPIRONOLACTONE 25 MG TABLET PO SCH (08:28)
[2020-10-31] MEDS ORDERED: BUDESONIDE 3 MG CAP.XL.24H PO SCH (09:00)
--- NOTE | 2020-10-31 09:19 | Discharge Summary ---
Discharge Provider Provider Patient information: Note initiated : 10/31/20 at 9:18 am Service Date, if different from initiated Date: [] Patient: Chidi Muniz 70 y/o F admitted on 10/30/20 for left sided abdominal pain. Chief Complaint: [Left kidney and ureteral stones] Date of admission: 10/30/20 11:31 Discharge date: 10/31/20 Consults: 10/29/20 07:27 Consult to Physician [CONS] Routine Comment: Consulting Provider: Janes Suero Reason For Exam: Physician to Consult Discharge Meds Discharge Medications Home Medications budesonide 3 mg capsule,delayed,extended release 3 mg PO QDAY each 11/21/14 [History Confirmed 10/29/20 Last Taken Unknown] albuterol sulfate 2 puff IH Q4-6HP PRN #1 hfa.aer.ad 03/12/15 [Rx Confirmed 10/29/20 Last Taken 04/21/19 08:00 2 puffs] methocarbamol 750 mg tablet 750 mg PO Q6H 30 Days #120 tab 05/23/15 [Rx Confirmed 10/29/20 Last Taken Unknown] spironolactone 25 mg tablet 25 mg PO BID #60 tab 05/23/15 [Rx Confirmed 10/29/20 Last Taken Unknown] ondansetron HCl [Zofran] 4 mg PO Q8H PRN #10 tab 10/31/20 [Rx Last Taken Unkno wn] oxycodone-acetaminophen 1 tab PO Q4HP PRN #10 tab 10/31/20 [Rx Last Taken Unknown] tamsulosin 0.4 mg PO HS #14 cap 10/31/20 [Rx Last Taken Unknown] COURSE Hospital Course Hospital course: Patient was admitted on October 29, 2020 for left kidney and left ureteral stones. Patient was started on IV fluid, Flomax, as well as antiemetics and narcotics for symptoms controlled. Patient has passed fragments of stones from urine strands. By October 31, 2020, patient's has made great symptom improved and her symptoms were mostly controlled and without IV narcotics. As such, decision was made to discharge her home with prescriptions of oral antiemetics and oral narcotics as needed for symptoms controlled. 2 weeks PCP follow-up appointment made for her. All questions were answered prior to patient being physically discharged. Discharge diagnosis: kidney and ureteral stones Time Spent with Patient Time attestation: Total time spent providing and/or coordinating discharge services: Patient was admitted on October 29, 2020 for left kidney and left ureteral stones. Patient was started on IV fluid, Flomax, as well as antiemetics and narcotics for symptoms controlled. Patient has passed fragments of stones from urine strands. By October 31, 2020, patient's has made great symptom improved and her symptoms were mostly controlled and without IV narcotics. As such, decision was made to discharge her home with prescriptions of oral antiemetics and oral narcotics as needed for symptoms controlled. 2 weeks PCP follow-up appointment made for her. All questions were answered prior to patient being physically discharged. EXAM Constitutional Vitals: Temp Pulse Resp BP Pulse Ox 36.1 C 84 16 141/80 94 10/31/20 07:32 10/31/20 07:32 10/31/20 07:32 10/31/20 07:32 10/31/20 07:32 General appearance: cooperative and no acute distress Head Head exam: Present atraumatic and normocephalic Eye Eye exam: Present EOMI and PERRL ENT ENT exam: Present mucous membranes moist, normal exam and normal external ear exam Neck Neck exam: Present normal inspection; Absent lymphadenopathy, tenderness and thyromegaly Respiratory Respiratory exam: Absent accessory muscle use, respiratory distress and wheezes Cardiovascular Cardiovascular exam: Present normal rate and rhythm; Absent JVD GI/Abdominal GI/Abdominal exam: Present normal bowel sounds, soft and tenderness; Absent organomegaly Extremities Exam Extremities exam: Present full ROM, normal capillary refill and normal inspection; Absent tenderness Back Exam Back exam: Present tenderness Neurological Exam Neurological exam: Present alert, CN II-XII intact and oriented X3; Absent motor sensory deficit Psychiatric Psychiatric exam: Present normal affect and normal mood; Absent anxious and depressed Skin Skin exam: Present dry and intact Discharge Plan Patient/Caregiver Discharge Instructions Activity: increase activity as tolerated Diet: Regular Diet Prescriptions: New oxycodone-acetaminophen 5-325 mg Tablet 1 tab PO Q4HP PRN (Reason: Per Pain Protocol) Qty: 10 RF: 0 tamsulosin 0.4 mg Capsule 0.4 mg PO HS Qty: 14 RF: 0 ondansetron HCl [Zofran] 4 mg tablet 4 mg PO Q8H PRN (Reason: nausea and vomiting) Qty: 10 RF: 0 Continued budesonide 3 mg capsule,delayed,extend.release 3 mg PO QDAY RF: 0 methocarbamol 750 mg tablet 750 mg PO Q6H 30 Days Qty: 120 RF: 11 spironolactone 25 mg tablet 25 mg PO BID Qty: 60 RF: 3 albuterol sulfate 8.5 GM HFA aerosol inhaler 2 puff IH Q4-6HP PRN (Reason: Dyspnea) Qty: 1 RF: 0 Discontinued oxycodone 20 mg tablet 20 mg PO Q4H PRN (Reason: pain) Qty: 120 RF: 0 oxycodone 10 mg tablet extended release 12hr 10 mg PO BID Qty: 60 RF: 0 clindamycin HCl 150 MG capsule 450 mg PO TID Qty: 126 RF: 0 Follow Up Plan Patient Disposition: Home, Self-Care Rehab Potential: Good I certify that the patient requires SNF services: No Overall status at discharge: patient is back to baseline Discharge Orders: Discharge Order (Routine); Ordered 10/31/20 Ordered By: Janes SCHMIDT VTE Deep Vein Thrombosis/Pulmonary Embolism Present on Admission: No
== END 2020-10-31 14:12 | disposition home or self-care (01) | DRG 694 ==
LOC: MEDSUR 19:19 → ED 19:19 → MEDSUR 10-29 02:19
PROVIDERS: ADMIT Internal Medicine; ATTEND Internal Medicine